=== PATIENT | female | born 1960 | race Two or more races ===

== ENCOUNTER 2021-04-27 15:32 | Outpatient (CLI) | payer BC ==
--- NOTE | 2021-05-05 10:44 | Mammography Report ---
BILATERAL DIGITAL SCREENING MAMMOGRAM 3D/2D: 04/27/2021 CLINICAL: Family history of breast cancer. Routine screening. Additional films were requested but not obtained. The tissue of both breasts is heterogeneously dens e. This may lower the sensitivity of mammography. There are biopsy clips in the left breast. There is an oval focal asymmetry in the right breast at 12 o'clock in the retroareolar region. There also is an oval focal asymmetry with punctate calcifications in the right breast at 4 o'clock p osterior depth. No other significant masses, calcifications, or other findings are seen in either breast. IMPRESSION: INCOMPLETE: NEED PRIOR STUDIES FOR COMPARISON The oval focal asymmetry in the right breast at 12 o'clock in the retroareolar region is indeterminat e. Additional views with possible ultrasound are recommended. The oval focal asymmetry in the right breast at 4 o'clock posterior depth is indeterminate. Addition al views with possible ultrasound are recommended. This exam was interpreted at Station ID: [id number]. NOTE: For mammograms, a report in lay terms will be sent to the patient. Approximately 15% of breast malignancies will not be visualized mammographically. In the management of a palpable breast mass, a negative mammogram must not discourage biopsy of a clinically suspicious lesion. Electronically Signed By: Julien [email or web address]/[email or web address]:05/04/2021 09:23:32 ACR BI-RADS Category 0 Need prior studies for comparison [id number] PARENCHYMAL PATTERN: (D) - The breast(s) demonstrate(s) heterogeneously dense fibroglandular christ almendarez. BI-RADS CATEGORY: (0) - 0 Mammo and [place] [id number] Immediate follow-up LATERALITY: (R)
== END 2021-04-27 15:33 | disposition home or self-care (01) ==
LOC: DI.N 15:32
DX: Z12.31 Encounter for screening mammogram for malignant neoplasm of breast (principal); R92.8 Other abnormal and inconclusive findings on diagnostic imaging of breast; Z80.3 Family history of malignant neoplasm of breast